=== PATIENT | male | born 1940 | race Caucasian/White ===

== ENCOUNTER 2024-12-27 10:28 | Outpatient (REF) | payer MEDICARE, SELFPAY ==
--- OUTSIDE RECORDS SUMMARY | 2024-12-27 11:17 | XMS_ITS | Clinical Summary ---
Author Organization [facility], Address [address] [address] Phone Care Team Providers Care Vallez Filter Operator Name Role Phone Elle Bloom MD Primary Care Provider Allergies Active Allergy Reactions Criticality Noted Date Comments Bee Venom Anaphylaxis High 02/07/2020 Gabapentin 10/17/2017 Mometasone Furo-Formoterol Fum 08/01/2017 Other reaction(s): SORES IN MOUTH Montelukast 08/01/2017 Other reaction(s): abnormal dreams Sucralfate 08/01/2017 Other reaction(s): diarrhea Tiotropium 10/17/2017 Varenicline 08/01/2017 Other reaction(s): nightmares Medications albuterol (2.5 MG/3ML) 0.083% nebulizer solution Inhale 2.5 mg 01/30/2020 Activ e albuterol HFA (ProAir HFA) 108 (90 Base) MCG/ACT inhaler INHALE 2 PUFFS BY MOUTH EVERY 6 HOURS NEEDED FOR WHEEZE 10/20/2018 Active atorvastatin (LIPITOR) 20 MG tablet Take 20 mg by mouth 1 (one) time each day 04/08/2019 Active EPINEPHrine (EPIPEN) 0.3 MG/0.3ML injection syringe as directed 01/25/2019 Active fluticasone (FLONASE) 50 MCG/ACT nasal spray INHALE 2 SPRAYS UP EACH NOSTRIL ONCE A DAY 07/23/2019 Active loratadine (CLARITIN) 10 MG tablet 1 tablet Active topiramate (TOPAMAX) 25 MG tablet Take 25 mg by mouth daily 09/07/2018 Active traZODone (DESYREL) 50 MG tablet Take 50 mg by mouth daily 11/21/2019 Active triamcinolone (KENALOG) 0.025 % ointment APPLY AM AND PM TO FACE FOR 1 WEEK ON, 1 WEEK OFF REPEAT NEEDED 01/19/2019 Active cholecalciferol (VITAMIN D-3) 50 MCG (1999 UT) tablet Take 2,000 Units by mouth 1 (one) time each day Active Active Problems Problem Noted Date Diagnosed Date Chronic kidney disease stage 3 12/02/2019 Essential hypertension 10/26/2017 Overview (02/07/2020): Last Assessment & Plan: He needs to get back on his antihypertensive. Monitor closely, and recheck lytes in one week. Hyperlipidemia 10/26/2017 Malignant neoplasm of prostate 10/26/2017 Hypertension Immunizations Name Administration Dates Next Due Influenza Split High Dose Pr eservative Free IM 08/27/2019,08/17/2018,12/17/2016,11/18,08/15/2014,09/17/2013 Influenza TIV (IM) 08/21/2009,09/12/2008 Influenza, Unspecified 08/11/2020,08/27/2019 Pneumococcal Conjugate 02/01/2008 Pneumococcal Conjugate 13-Valent 02/18/2015 Pneumococcal Polysaccharide 12/17/2016 Tdap 2012 Zoster 09/03/2020,04/15/2014 Family History Medical History Relation Comments Heart failure Father Heart failure Mother Relation Status Comments Father Mother Social History Tobacco Use Types Packs/Day Years Used Date Smoking Tobacco: Former Cigarettes 2 50 1 961 - 2010 Alcohol Use Standard Drinks/Week Comments Never 0 (1 standard drink = 0.6 oz pur e alcohol) AUDIT-C Answer Date Recorded Q1: How often do you have a drink containing alc ohol? 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
--- OUTSIDE RECORDS SUMMARY | 2024-12-27 11:17 | XMS_ITS | Encounter Summary ---
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
--- OUTSIDE RECORDS SUMMARY | 2024-12-27 11:17 | XMS_ITS | Encounter Summary ---
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 Not on file Not on file documented as of this encounter Plan of Treatment Not on file documented as of this encounter Procedures Procedure Name Priority Date/Time Associated Diagnosis Comments RENAL FUNCTION PANEL Routine 03/05/2021 8:12 AM EDT Chronic kidney disease stage 3 documented in this encounter Results * Renal function panel (03/05/2021 8:12 AM EDT) Blood us Ashwin Perez MD LAB BLOOD ORDERABLES Final Resu lt PRINT/EXTERNAL (NON-INTERFACED LABS) documented in this encounter Visit Diagnoses Diagnosis Chronic kidney disease stage 3 (HCC) documented in this encounter Care Teams Principal Network Architect Relationship Specialty Start Date End Date Elle Bloom MD [address] [place], [place] PCP - General Family Medicine 01/28/20 documented as of this encounter
--- OUTSIDE RECORDS SUMMARY | 2024-12-27 11:17 | XMS_ITS | Encounter Summary ---
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
--- OUTSIDE RECORDS SUMMARY | 2024-12-27 11:17 | XMS_ITS | Continuity of Care Document ---
Author Organization [facility] Address [address] [place] [phone] Phone Care Team Providers Care Systems Admin Name Role Phone Unavailable Unavailable Unavailable Advance Directives Directive Yes / No Effective Date File Name No Information Encounters Encounter Description Practice Location Reason(s) For Visit Diagnoses Date Provider Providers Copied on Encounter [facility], [address] [place] [address], [place], [place], [id number], [place] tel:[phone] [facility] No Information [address] [id number] No Information Family History Family Member Type Diagnosis Age At Onset No Information Payers Payer name Insurance type Covered green party ID Authoriza tion(s) No Information Social History Type Description Quantity Date Captured Comments Sex Male Smoking Status No Information Chief Complaint And Reason For Visit No Information Reason For Referral Reason For Referral No Information History Of Present Illness Encounter Date Complaint History Of Prese nt Illness No Information Functional Status Date Functional Assessmen t No Information Instructions Date Instruction Additional Infor mation No Information Assessments Type Assessment Date No Information Patient Care Teams Name Effective Dates (start - stop) Status Members No Information
--- OUTSIDE RECORDS SUMMARY | 2024-12-27 11:17 | XMS_ITS | Encounter Summary ---
Author Organization [facility] [place], Address [address] [place] [address] Phone Care Team Providers Care Ripsaw Grader Name Role Phone Elle Bloom MD Primary Care Provider + [phone] Encounter Details Date Type Department Care Team (Late st Contact Info) Description 08/22/2020 Orders Only [facility] [place] - [place] [address] 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
[2024-12-30 08:02] LABS: TS Negative Control Passed; TS Panel A 0; TS Panel B 0; TS Positive Control Passed; TSpotTB Negative (Negative)
== END 2024-12-27 10:29 | disposition home or self-care (01) ==
LOC: HO.LAB 10:28
PROVIDERS: PCP Family Medicine; Visit Provider Family Medicine
DX: Z11.1 Encounter for screening for respiratory tuberculosis (principal)
CPT/HCPCS: 36415; 86481